=== PATIENT | female | born 1955 | race Caucasian/White ===

== ENCOUNTER → 2016-09-23 | Outpatient (CLI) | payer BC ==
[~2016-09-23] MED LIST: B COMPLEX1 TAB PO; BONIVA150 MG PO; CALCIUM500 MG PO; FISH OIL 1,0001 EAC1 PO; VITAMIN D1000 UNIT PO
--- NOTE | ~2016-09-23 | US136 ---
[facility] A Service of [facility] RADIOLOGY TEXT RESULTS PATIENT: NAMRATA DONATO LOCATION: CNIV : 54 UNIT #: [id number] AGE: [address]: FAITH NAYAK SEX: F ORDER DR: [id number] [facility] [address] [place], [place] [address] [id number] O MR#: [id number] Acc #: [id number] NAME: NAMRATA DONATO : 1955 SEX: F STUDY DATE/TIME: 09/23/2016 14:49 UNIT: CNIV ROOM: STUDY DESCRIPTION: U/L Ext Art Study [facility] Bil Attending Physician: Faith Nayak Referring Physician: Faith Nayak Primary Care Physician: Lakia Engle M.D. MEDICAL IMAGING REPORT This report is preliminary unless electronic signature is present EXAM Resting bilateral ankle-brachial index measurement, 09/23/2016. HISTORY 60-year-old female with 3-week history of unexplained left foot pain. Clinical concern for claudication related to peripheral vascular disease. History of hypertension and heart disease. TECHNIQUE Cuff pressure measurements were obtained bilaterally at brachial, ankle and great toe levels with separate posterior tibial and dorsalis pedis measurements at each ankle. Pulse volume recordings and Doppler arterial waveforms were obtained at the ankles. FINDINGS Brachial pressures reflect systolic hypertension with highest right systolic pressure of 200 and left systolic pressure of 194. Ankle-brachial indices are within normal limits measuring up to 0.91 on the right and 1.01 on the left. Great toe pressures are within normal limits when compared with ankle pressures. There is no evidence of significant lower extremity arterial occlusive disease. IMPRESSION 1. No evidence of significant lower extremity arterial occlusive disease. 2. Ankle-brachial indices at rest are within normal limits measuring up to 0.91 on the right 1.01 on the left. 3. High brachial systolic pressures measuring up to 200 on the right consistent with hypertension. Dictated by... Gerhard Delong M.D. [facility] A Service [facility] RADIOLOGY TEXT RESULTS PATIENT: NAMRATA DONATO LOCATION: CNIV : 54 UNIT #: [id number] AGE: [address]: FAITH NAYAK SEX: F ORDER DR: THIS IS AN ELECTRONICALLY VERIFIED REPORT Gerhard Delong M.D. at 09/26/2016 5:58 AM SWETHA/adolph TD: 09/24/2016 13:11 JOB #: [id number] MEDICAL IMAGING REPORT Page 1 of 1 COPY
--- NOTE | ~2016-09-23 | US85 ---
[facility] A Service of [facility] RADIOLOGY TEXT RESULTS PATIENT: NAMRATA DONATO LOCATION: CNIV : 54 UNIT #: [id number] AGE: [address]: FAITH NAYAK SEX: F ORDER DR: [id number] [facility] [address] [place], [place] [address] [id number] O MR#: [id number] Acc #: [id number] NAME: NAMRATA DONATO : 1955 SEX: F STUDY DATE/TIME: 09/23/2016 13:32 UNIT: CNIV ROOM: STUDY DESCRIPTION: [facility] Attending Physician: Jn Nayak Aprn Referring Physician: Jn Nayak Aprn Primary Care Physician: Lakia Engle M.D. MEDICAL IMAGING REPORT This report is preliminary unless electronic signature is present EXAM Left lower extremity venous duplex 09/23/2016 HISTORY Left lower extremity pain and swelling for 3 weeks. Evaluate for deep vein thrombosis. TECHNIQUE Venous ultrasound examination of the left lower extremity was performed using grayscale, spectral Doppler and color flow Doppler imaging. FINDINGS The examination is negative. There is no evidence of left lower extremity deep venous thrombus from the groin to the lower calf. Visualized greater saphenous vein is also patent. IMPRESSION Negative examination. No evidence of left lower extremity deep venous thrombosis. Dictated by... Shady Westfall M.D. THIS IS AN ELECTRONICALLY VERIFIED REPORT Shady Westfall M.D. at 09/23/2016 5:34 PM Lupis TD: 09/23/2016 17:18 JOB #: [id number] MEDICAL IMAGING REPORT Page 1 of 1 COPY
== END | disposition home or self-care (01) ==
LOC: CNIV 12:42
DX: M79.672 Pain in left foot (principal)
CPT/HCPCS: 93922; 93923; 93971